=== PATIENT | male | born 1995 | race African-American/Black ===

== ENCOUNTER 2017-07-22 12:34 | Emergency (ER) | payer SELFPAY ==
--- NOTE | 2017-07-22 20:24 | RAD ---
RIGHT ANKLE THREE VIEWS: 07/22/17 No fracture, dislocation, or joint space abnormality was seen. The articular surfaces are smooth. IMPRESSION: No acute finding. POS: HOME
== END 2017-07-22 13:18 | disposition home or self-care (01) ==
LOC: BURERS 12:34
DX: S93.401A Sprain of unspecified ligament of right ankle, initial encounter (principal); F17.210 Nicotine dependence, cigarettes, uncomplicated; W17.89XA Other fall from one level to another, initial encounter

== ENCOUNTER 2017-08-07 07:26 | Emergency (ER) | payer SELFPAY ==
[2017-08-07] MEDS ORDERED: Ibuprofen 200 MG TAB ONE (07:43)
== END 2017-08-07 07:47 | disposition home or self-care (01) ==
LOC: BURERS 07:26
DX: S63.501A Unspecified sprain of right wrist, initial encounter (principal); F17.210 Nicotine dependence, cigarettes, uncomplicated; X58.XXXA Exposure to other specified factors, initial encounter
CPT/HCPCS: 99283